=== PATIENT | male | born 1955 | race African-American/Black ===

== ENCOUNTER 2020-02-07 23:30 | Emergency (ER) | payer OTHER ==
[~2020-02-07 23:30] MED LIST: ETOMIDATE INJ/PF 20 MG/10 ML SDV IV ONE; ROCURONIUM BROMIDE INJ 50 MG/5 ML VIAL IV ONE; SUCCINYLCHOLINE CHLORIDE INJ 200 MG/10 ML VIAL ONE
[2020-02-07] MEDS ORDERED: TRANEXAMIC ACID INJ/PF 1,000 MG/10 ML SDV IV STA (23:49)
[2020-02-07] MEDS ORDERED: LEVETIRACETAM 1000 MG/NACL-ISO 1,000 MG/100 ML RTUPB IV ONE (23:50)
[2020-02-07] MEDS ORDERED: HYDRALAZINE HCL INJ/PF 20 MG/1 ML SDV ONE (23:51)
[2020-02-07] MEDS ORDERED: LIDOCAINE 1% INJ (10 MG/ML) 10 ML MDV INJ ONE (23:51)
[2020-02-07] MEDS ORDERED: ETOMIDATE INJ/PF 20 MG/10 ML SDV IV ONE (23:53)
[2020-02-07] MEDS ORDERED: SUCCINYLCHOLINE CHLORIDE INJ 200 MG/10 ML VIAL IV ONE (23:54)
[2020-02-07 23:58] LABS: ABSOLUTE EOSINOPHILS # (AUTO) 0.1 10^3/uL (0.0-0.6); ABSOLUTE LYMPHOCYTES (AUTO) 1.1 10^3/uL (0.5-4.7); ABSOLUTE MONOCYTES (AUTO) 0.5 10^3/uL (0.1-1.4); ABSOLUTE NEUT (AUTO) 2.1 10^3/uL (1.7-8.2); BASOPHILS % (AUTO) 1.1 % (0-2); EOSINOPHILS % (AUTO) 3.1 % (0-6); HEMATOCRIT 34.9 % (37.9-51.0); HEMOGLOBIN 11.9 g/dL (13.5-17.0); LYMPHOCYTES % (AUTO) 29.4 % (13-45); MEAN CORPUSCULAR VOLUME 85 fl (80-97); MONOCYTES % (AUTO) 12.2 % (3-13); PLATELET COUNT 168 10^3/uL (150-450); RED CELL DISTRIBUTION WIDTH 14.7 % (11.5-14.0); SEGMENTED NEUTROPHILS % (AUTO) 54.2 % (42-78); TOTAL CELLS COUNTED % (AUTO) 100 %; WHITE BLOOD COUNT 3.8 10^3/uL (4.0-10.5)
[2020-02-08] MEDS ORDERED: NICARDIPINE HCL RTU, ISO-OS 20 MG/200 ML RTUINJ IV ONE
[2020-02-08] MEDS ORDERED: LIDOCAINE 1% INJ-PF (10 MG/ML) 30 ML SDV ONE
[2020-02-08 00:03] LABS: INTERNATIONAL RATION (INR) 0.96
[2020-02-08] MEDS ORDERED: PROPOFOL 1,000 MG/100 ML INFUS..BTL IV PRN (00:07)
--- NOTE | 2020-02-08 00:07 | RADIOLOGY REPORT (SQ) ---
EXAM: CT head without IV contrast CLINICAL DATA: 64-year-old male with strokelike symptoms TECHNICAL DATA: Multiple axial CT images of the brain were performed followed by sagittal and coronal reconstructed images. The CT study is performed according to ALARA (as low as reasonably achievable) or ALARA/IMAGE GENTLY, with automatic adjustment of mA and/or kV according to patient size. Performed on: 02/07/2020 11:35 PM Comparisons: None. FINDINGS: Brain: There is a focal area of increased attenuation within the right thalamus measuring approximately 2.1 x 2.6 x 2.0 cm consistent with a parenchymal bleed. There is surrounding cerebral edema and local mass effect with approximately 2 mm of midline shift to the left. No additional intracranial hemorrhage is identified. The cerebral sulci and ventricles are mildly prominent consistent with age-related volume loss. There is patchy subcortical and periventricular low attenuation consistent with chronic microangiopathy. There is no evidence of a hyperdense MCA sign. The cerebellar tonsils are normal in location and configuration. Paranasal Sinuses and Mastoids: There is no significant mucosal thickening of the paranasal sinuses. The mastoid air cells are clear. Orbits: The orbital contents are grossly unremarkable. Bones: No acute osseous abnormalities are identified. Soft Tissues: No focal soft tissue abnormalities are identified. IMPRESSION: 1. Right thalamic parenchymal bleed measuring approximately 2.1 x 2.6 x 2.0 cm with surrounding cerebral edema, local mass effect and 2 mm of midline shift to the left. 2. Mild age-related cerebral volume loss with findings compatible with mild chronic microangiopathy.
--- NOTE | 2020-02-08 00:11 | RADIOLOGY REPORT (SQ) ---
CLINICAL HISTORY: stroke symptoms COMPARISON: None. TECHNIQUE: XR CHEST 1 VIEW 02/07/2020 11:34 PM CDT FINDINGS: The heart is mildly enlarged. Lungs are clear without consolidation, atelectasis, mass or edema. There is no pleural effusion. There is no pneumothorax. There are no acute osseous findings. IMPRESSION: Clear lungs.
[2020-02-08] MEDS ORDERED: MIDAZOLAM 2 MG/2 ML INJ IV ONE (00:13)
--- NOTE | 2020-02-08 00:14 | ER Document Report ---
ED General - General Stated Complaint: POSSIBLE STROKE Time Seen by Provider: 02/07/20 23:41 - HPI Notes: Patient is a 64-year-old male, brought into the emergency department for evaluation by EMS. Evidently around 11 PM, he started complaining of some left leg heaviness. This worsened, he developed left arm weakness as well. His became concerned, and called EMS. The patient arrived here to the department as a stroke alert. He was obtunded upon arrival, sent immediately to CT scan. CT scan revealed an intracranial hemorrhage, I am brought into the room to evaluate the patient upon this knowledge. Initially the patient was unable to answer any questions, during the course of my evaluation he did become more alert. He denies any pain. Evidently he had a history of hypertension in the past, had been taken off of medications because his blood pressure was well controlled. - Related Data Allergies/Adverse Reactions: No Known Allergies Allergy (Unverified 02/08/20 01:43) Home Medications: None Past Medical History - General Information source: Relative - Social History Smoking Status: Never Smoker Family History: None - Past Medical History Cardiac Medical History: Reports: Hx Hypertension Review of Systems - Review of Systems -: Yes ROS unobtainable due to patient's medical condition Physical Exam - Notes Notes: This is a 64-year-old male who appears his stated age. On initial evaluation he was extremely obtunded. He would not respond to painful stimuli. He was not moving anything spontaneously. On secondary assessment, the patient was more alert and arose to verbal stimuli. Vital signs reviewed, please refer to chart. Head is normocephalic, atraumatic. Pupils equal round, reactive to light. Neck is supple without meningismus. Heart is regular rate and rhythm. Lungs are clear to auscultation bilaterally. Abdomen is soft, nontender, normoactive bowel sounds throughout. Extremities without cyanosis, clubbing. Posterior calves are nontender. Peripheral pulses are equal. Skin is warm and dry. Patient is drowsy, oriented x3. Patient with left-sided facial droop, otherwise cranial nerves II - XII are grossly intact without focal neurological deficits. Strength is plus 5 out of 5 right upper and lower extremities. 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 Sensation is intact. Reflexes symmetrical. Course - Re-evaluation Re-evalutation: 02/08/20 00:22 Patient presented emergency department for evaluation. He was sent immediately to CT scan. CT scan revealed a hemorrhagic CVA. I was contacted by Dr. Marrero at 00 20, who reports that this is a 2.6 cm right thalamic bleed with 2 mm of midline shift. Based on the waxing and waning mental status, and my concern over loss of an airway, decision was made to intubate the patient. Please see separate procedure note. Patient tolerated the intubation well, but following he became more hypotensive and was gagging. I ordered propofol it had not been delivered yet. Patient did not have a significant response to hydralazine either. Patient was given a push of Versed, which helped him with the sedation. He continued to have intermittent motion, and I was concerned about this worsening his bleed, so decision was made to administer rocuronium. Patient was given tranexamic acid and Keppra as well. I spoke with the transfer center at [facility], awaiting phone call from physician. 02/08/20 00:36 I spoke with Silva Brewster, nurse practitioner orthodontic treatment coordinator for neurology at [facility]. She accepts the patient. She does recommend better blood pressure control. Patient's heart rate had gone up into the 120s, so a push of labetalol was ordered. Patient is currently on propofol. Cardene drip is hanging as well. Keppra infusion has almost finished. Patient will be accepted by Dr. Tobias at [facility], will either go to the ED or directly to the ICU. I a lso notified transfer facility that the patient's troponin was positive at 3. EKG was performed which showed no ST elevation, but he does have a strain pattern and possible ischemia noted. Of course this cannot be treated with any sort of anticoagulation given his current hemorrhage. 02/08/20 00:47 I was later notified by nursing that it was in fact an error, the patient's troponin is not elevated. I did notify the of this. Transfer center will be notified as well. 02/08/20 01:22 Patient's blood pressure responded rapidly to the labetalol. Patient's heart rate came down initially into the 80s, then into the 50s. His blood pressure rapidly went into the 130s. Initially his Cardene drip was slowed, then it was entirely stopped. His blood pressure remained around 130 systolic. Based on this, decision was made to start the patient on some IV fluids, and slow the propofol drip, which could be causing hypotension as well. Silva Brewster was notified of this change. She was also notified that the troponin was falsely reported to be elevated. 02/08/20 01:48 Just prior to transfer, patient became hypotensive. His heart rate remained in the 50s, but blood pressure in the 80s. IV fluids were ordered to be opened up. Propofol drip was discontinued. His pupils are small but equal. Decision was made not to perform repeat CT scan here, as transport was ready, and I do not have any ability to change disposition on findings. - Laboratory Result Diagrams: 02/07/20 23:45 02/07/20 23:45 Laboratory results interpreted by me: 02/07/20 02/07/20 23:45 23:45 WBC 3.8 L RBC 4.10 L Hgb 11.9 L Hct 34.9 L RDW 14.7 H Potassium 3.0 L* Carbon Dioxide 31 H BUN 30 H Creatinine 1.89 H Est GFR ( Amer) 44 L Est GFR (MDRD) Non-Af 36 L Alkaline Phosphatase 180 H Creatine Kinase 319 H - Diagnostic Test Radiology reviewed: Image reviewed, Reports reviewed Radiology results interpreted by me: 02/08/20 00:38 Chest X-Ray 02/07/20 23:34 IMPRESSION: Clear lungs. Head CT 02/07/20 23:34 IMPRESSION: 1. Right thalamic parenchymal bleed measuring approximately 2.1 x 2.6 x 2.0 cm with surrounding cerebral edema, local mass effect and 2 mm of midline shift to the left. 2. Mild age-related cerebral volume loss with findings compatible with mild chronic microangiopathy. Chest x-ray interpreted by myself without the aid of a radiologist. ET tube in satisfactory position. OG tube in satisfactory position. Otherwise clear lungs. - EKG Interpretation by Me Additional EKG results interpreted by me: 02/08/20 00:38 Sinus tachycardia with a rate of 122 bpm. Normal axis, IVCD. LVH with strain, and ST changes concerning for anterolateral ischemia. No ST elevation ke rning for infarction. Procedures - Intubation Orotracheal Mallampati Classification: Class 2 Medications: Lidocaine, Etomidate, Succinylcholine Intubation method: Orotracheal Blade type: [place] Blade size: 3 Equipment used: Glidescope ETT size: 7.5 ETT secured at: Gums Breath Sounds after Intubation: Equal End tidal CO2 confirmed: Yes Critical Care Note - Critical Care Note Total time excluding time spent on procedures (mins): 65 Discharge - Discharge Clinical Impression: Hemorrhagic cerebrovascular accident (CVA), Uncontrolled hypertension Clinical Impression: (Ruled Out): NSTEMI (non-ST elevated myocardial infarction) Condition: Serious Disposition: [facility] Admitting Provider: Dr. Tobias
[2020-02-08] MEDS ORDERED: ROCURONIUM BROMIDE INJ 50 MG/5 ML VIAL IV ONE (00:17)
[2020-02-08 00:21] LABS: ALKALINE PHOSPHATASE 180 U/L (38-126); ANION GAP 7 (5-19); ASPARTATE AMINO TRANSFERASE 40 U/L (17-59); BILIRUBIN,TOTAL 0.4 mg/dL (0.2-1.3); BLOOD UREA NITROGEN 30 mg/dL (7-20); CALCIUM 8.8 mg/dL (8.4-10.2); CARBON DIOXIDE 31 mmol/L (22-30); CHLORIDE 104 mmol/L (98-107); CREATINE KINASE 319 U/L (55-170); GLUCOSE 78 mg/dL (75-110); TOTAL PROTEIN 6.7 g/dL (6.3-8.2)
[2020-02-08] MEDS ORDERED: LABETALOL HCL INJ 20 MG/4 ML DISP.SYRIN IV ONE (00:28)
[2020-02-08 00:41] LABS: CREATINE KINASE MB 2.33 ng/mL (<4.55)
[2020-02-08 00:44] LABS: TROPONIN I 0.061 ng/mL
--- NOTE | 2020-02-08 00:59 | RADIOLOGY REPORT (SQ) ---
EXAM DESCRIPTION: XR CHEST 1 VIEW COMPLETED DATE/TME: 02/08/2020 00:07 CLINICAL HISTORY: ETT placement COMPARISON: 02/07/2020 FINDINGS: Single frontal view of the chest. Tubes and lines: Endotracheal tube with tip 5 cm above the [place]. NG tube with tip in the stomach. Leads overlie the chest. Cardiomediastinal silhouette: Stable Lungs: Low lung volumes. No pneumothorax or large effusion. Stable minimal bibasilar opacities. Bones: Stable. Upper abdomen: Stable. IMPRESSION: 1. Endotracheal tube and NG tube in appropriate position. Otherwise stable appearance of the chest.
[2020-02-08] MEDS ORDERED: NORMAL SALINE 1000 ML 1,000 ML IV ONE (01:18)
[2020-02-08 02:32] VITALS: BP 85/56
--- NOTE | 2020-02-08 09:41 | EKG REPORT ---
SEVERITY:- ABNORMAL ECG - SINUS TACHYCARDIA LEFT ATRIAL ABNORMALITY LVH WITH SECONDARY REPOLARIZATION ABNORMALITY LATERAL INFARCT, AGE INDETERMINATE ST DEPRESSION, CONSIDER ISCHEMIA, ANT LEADS : Confirmed by: Nia Kitchen 08-Feb-2020 09:40:19
== END 2020-02-08 02:10 | disposition short-term general hospital (02) ==
LOC: ER 23:30
DX: I61.8 Other nontraumatic intracerebral hemorrhage (principal); G81.04 Flaccid hemiplegia affecting left nondominant side; I11.9 Hypertensive heart disease without heart failure; R00.0 Tachycardia, unspecified
CPT/HCPCS: 31500; 93005; 99291; 96375; 96365; 96366; 96367; 36415; 82553; 82962; 82550; 85025; 85610; 85730; 80053; 84484; 71045 ×2; 70450; 94660; 93010; J2250; J3490 ×5; J2704; J0330; J7030; J1953